=== PATIENT | female | born 2000 | race African-American/Black ===

== ENCOUNTER 2019-04-08 18:45 | Emergency (ER) | payer SELFPAY ==
[~2019-04-08] VITALS: Ht 162.6 cm; Wt 67.0 kg
[2019-04-08] MEDS ORDERED: ACETAMINOPHEN 325MG TABLET PO STA (21:26)
[2019-04-08 22:37] LABS: EOSINOPHILS % 5.2 % (0.0-5.0); HEMATOCRIT. 37.8 % (36.0-48.0); HEMOGLOBIN. 12.4 g/dL (12.0-16.0); LYMPHOCYTES % 29.4 % (20.0-50.0); MEAN CORPUSCULAR HEMOGLOBIN 30.3 pg (28.0-32.0); MEAN CORPUSCULAR VOLUME 92.7 fL (81.0-99.0); MEAN PLATELET VOLUME 9.2 fl (7.4-10.4); MONOCYTES % 9.7 % (2.0-8.0); NEUTROPHILS % 54.7 % (40.0-76.0); PLATELET 209 x1000/uL (130-400); RED BLOOD CELL COUNT 4.08 mill/uL (4.2-5.4); RED CELL DISTRIBUTION WIDTH 12.3 % (11.6-14.6)
[2019-04-08 22:43] LABS: CHLORIDE 110 mEq/L (98-107)
[2019-04-08 22:44] LABS: HCG SCREEN NEGATIVE
[2019-04-08 22:49] LABS: ETHANOL BLOOD < 10 mg/dL
[2019-04-09 04:00] VITALS: BP 122/68
== END 2019-04-09 11:28 | disposition home or self-care (01) ==
LOC: ER 18:45
DX: R10.2 Pelvic and perineal pain (principal); F31.9 Bipolar disorder, unspecified; Z59.0 Homelessness
CPT/HCPCS: 36415; 80053; 80320; 84703; 85025; 99283; G0480

== ENCOUNTER 2020-12-11 14:40 | Emergency (ER) | payer MEDICAID ==
[~2020-12-11] VITALS: Ht 162.6 cm; Wt 93.0 kg
[2020-12-11 15:00] VITALS: BP 125/85
== END 2020-12-11 15:36 | disposition home or self-care (01) ==
LOC: ER 14:40
DX: F20.9 Schizophrenia, unspecified (principal); R45.851 Suicidal ideations; F32.A Depression, unspecified; Z91.013 Allergy to seafood
CPT/HCPCS: 99281